=== PATIENT | male | born 1950 | race Hispanic/Latino ===

== ENCOUNTER → 2023-03-30 | Outpatient (CLI) | payer OTHER ==
[~2023-03-30] MED LIST: IOHEXOL 350 MG/ML 100ML INFUS..BTL IV ONE
== END | disposition home or self-care (01) ==
LOC: RAH 09:02
PROVIDERS: ATTEND Student in an Organized Health Care Education/Training Program
DX: I25.10 Atherosclerotic heart disease of native coronary artery without angina pectoris (principal); M47.815 Spondylosis without myelopathy or radiculopathy, thoracolumbar region; I45.6 Pre-excitation syndrome
CPT/HCPCS: 75574; Q9967

== ENCOUNTER 2023-04-29 06:33 | Day surgery (SDC) | payer OTHER ==
[2023-04-27 13:02] LABS: BASOPHILS # (AUTO) 0.03 K/uL (0.00-0.20); BASOPHILS % (AUTO) 0.4 % (0.0-5.0); EOSINOPHILS # (AUTO) 0.09 K/uL (0.00-0.70); EOSINOPHILS % (AUTO) 1.2 % (0.0-8.0); HEMATOCRIT 43.5 % (42-54); IMMATURE GRANULOCYTE ABSOLUTE 0.02 K/uL (0-1); LYMPHOCYTES # (AUTO) 2.4 K/uL (1.0-4.8); MEAN CORPUSCULAR HEMOGLOBIN 31.7 pg (27.0-33.0); MEAN CORPUSCULAR HGB CONC 33.6 g/dL (32.0-36.0); MEAN CORPUSCULAR VOLUME 94.6 fL (79-99); MONOCYTES # (AUTO) 0.6 K/uL (0.1-1.0); MONOCYTES % (AUTO) 8.4 % (3.0-13.0); NEUTROPHILS # (AUTO) 4.4 K/uL (1.8-7.7); NEUTROPHILS % (AUTO) 57.7 % (40.0-77.0); PLATELET COUNT (AUTO) 232 K/uL (130-400); RED CELL DISTRIBUTION WIDTH 12.9 % (11.0-15.5); WHITE BLOOD COUNT (AUTO) 7.6 K/uL (4.8-10.8)
[2023-04-27 13:10] LABS: APPEARANCE,URINE CLEAR (CLEAR); BILIRUBIN,URINE NEGATIVE (NEGATIVE); COLOR,URINE LIGHT-YELLOW (YELLOW); GLUCOSE, URINE (UA) NEGATIVE (NEGATIVE); KETONES,URINE NEGATIVE (NEGATIVE); LEUKOCYTE ESTERASE ,URINE NEGATIVE Leu/uL (NEGATIVE); NITRATE,URINE NEGATIVE (NEGATIVE); OCCULT BLOOD,URINE NEGATIVE (NEGATIVE); PROTEIN,URINE NEGATIVE (NEGATIVE); UROBILINOGEN,URINE 0.2 mg/dL (0.2-1.0)
[2023-04-27 13:22] LABS: ADD UA MICROSCOPIC NO
[2023-04-27 13:23] LABS: CREATININE 1.2 mg/dL (0.5-1.5); POTASSIUM 4.5 mmol/L (3.5-5.1)
[2023-04-27 13:24] VITALS: BP 205/98; PULSE 70; RESP 18
[2023-04-27 13:28] LABS: INR 0.96 (0.85-1.15); PROTHROMBIN TIME 11.2 SEC (9.6-11.6)
[2023-04-27 13:30] LABS: PARTIAL THROMBOPLASTIN TIME 27.9 SEC (26.3-35.5)
[2023-04-27 13:37] LABS: B-TYPE NATRIURETIC PEPTIDE 49 pg/mL (0-100)
[2023-04-27 13:38] VITALS: BP 188/80; PULSE 60; RESP 16
[2023-04-29] VITALS (9 sets, daily range): BP systolic 119–184; BP diastolic 51–81; PULSE 60–70; RESP 14–19
[~2023-04-29] VITALS: Ht 165 cm; Wt 83.4 kg
[~2023-04-29 06:33] MED LIST changes: +ASPI-1005 PO; -IOHEXOL 350 MG/ML 100ML INFUS..BTL IV ONE; +LOSA50TA64 PO; +PANT20TA18 PO; +ZOLP5TAB8 PO
[2023-04-29] MEDS ORDERED: 0.9%NACL 1000ML 1,000 ML IV ONE (07:25)
[2023-04-29] MEDS ORDERED: ATOR40TA69 PO (08:06)
[2023-04-29] MEDS ORDERED: FLUT15.845 NS (08:06)
[2023-04-29] MEDS ORDERED: ALOG12.52 PO (08:06)
[2023-04-29] MEDS ORDERED: FENTANYL CITRATE PF 50 MCG/1 ML 2ML VIAL ONE (08:46)
[2023-04-29] MEDS ORDERED: LIDOCAINE HCL 400MG/20ML VIAL ONE (08:46)
[2023-04-29] MEDS ORDERED: VERAPAMIL HCL 2.5 MG/ML VIAL ONE (08:47)
[2023-04-29] MEDS ORDERED: MIDAZOLAM HCL 1 MG/ML 2ML VIAL ONE ×2 (08:47→10:11)
[2023-04-29] MEDS ORDERED: IOHEXOL 350 MG/ML 100ML INFUS..BTL IV ONE (08:47)
[2023-04-29] MEDS ORDERED: HEPARIN 10,000 UNIT/10ML (1,000 UNIT/ML) VIAL ONE (08:47)
[2023-04-29] MEDS ORDERED: DiphenhydrAMINE HCL 50 MG/ML VIAL ONE (09:11)
[2023-04-29] MEDS ORDERED: HYDRALAZINE 20MG/ML VIAL ONE (09:23)
[2023-04-29] MEDS ORDERED: ASPIRIN 325MG EC TAB PO ONE (09:51)
[2023-04-29] MEDS ORDERED: CLOPIDOGREL 300MG TAB ONE (09:51)
[2023-04-29] MEDS ORDERED: IOHEXOL-350 50ML VIAL IV ONE (10:21)
[2023-04-29] MEDS ORDERED: 0.9%NACL 1000ML 1,000 ML IV SCH (11:00)
[2023-04-29] MEDS ORDERED: GLUCAGON 1MG KIT 1 MG ML IM PRN (11:00)
[2023-04-29] MEDS ORDERED: DEXTROSE 50%-WATER 50 ML DISP.SYRIN IV PRN (11:00)
[2023-04-30] MEDS ORDERED: CLOPIDOGREL 75MG TAB PO SCH (09:00)
== END 2023-04-29 15:35 | disposition home or self-care (01) ==
LOC: DAH 06:33
PROVIDERS: ATTEND Student in an Organized Health Care Education/Training Program
DX: I25.119 Atherosclerotic heart disease of native coronary artery with unspecified angina pectoris (principal); I45.6 Pre-excitation syndrome; E78.5 Hyperlipidemia, unspecified; E11.22 Type 2 diabetes mellitus with diabetic chronic kidney disease; I12.9 Hypertensive chronic kidney disease with stage 1 through stage 4 chronic kidney disease, or unspecified chronic kidney disease; N18.2 Chronic kidney disease, stage 2 (mild); Z79.01 Long term (current) use of anticoagulants; Z79.82 Long term (current) use of aspirin; Z79.899 Other long term (current) drug therapy; Z98.890 Other specified postprocedural states; Z82.49 Family history of ischemic heart disease and other diseases of the circulatory system; Z83.3 Family history of diabetes mellitus
CPT/HCPCS: 80048; 83880; 85025; 85610; 85730; 81003; 36415; 71045; 93005; 92978; 93571; 85347 ×3; 82948; 93458; C9600; C1769 ×3; C1894 ×3; C1725 ×3; C1874 ×2; C1760; A4649; C1887; C1753; J1200; J3010; J3490 ×2; J7030; J0360; J1644 ×3; J2250 ×2; Q9967 ×2; A4215; A4222; A4221; A4663; A4216; A4606; Q9965 ×2; A4223 ×3; 96360; 96361; 99156; 99157